=== PATIENT | male | born 1975 | race African-American/Black ===

== ENCOUNTER 2022-01-03 20:59 | Inpatient (IN) | payer SELFPAY ==
[2022-01-03 21:50] LABS: #Basophils 0.1 10x3/uL (0.0-0.2); #Eosinphils 0.5 10x3/uL (0.0-0.5); #Monocytes 1.1 10x3/uL (0.0-1.1); %Basophils 0.4 % (0.0-2.0); %Eosinophils 3.2 % (0.0-6.0); %Lymphocytes 24.3 % (18.0-47.0); %Monocytes 7.9 % (0.0-10.0); %Neutrophils 63.8 % (40.0-75.0); Hemoglobin 13.4 g/dL (13.5-17.5); Mean Corpuscular HGB CONC 35.1 g/dL (32.0-36.0); Mean Corpuscular Hemoglobin 29.5 pg (27.0-33.0); Mean Corpuscular Volume 84.1 fl (81.2-95.1); Mean Platelet Volume 11.7 fl (7.4-10.4); Platelet Count 270 10x3/uL (150-450); RBC Distribution Width 13.7 % (11.5-14.5); Red Blood Cell (RBC) Count 4.54 10x6/uL (4.32-5.72); White Blood Cell (WBC) Count 14.1 10x3/uL (3.5-10.5)
[2022-01-03 22:00] LABS: ALT (SGPT) 15 U/L (8-55); AST (SGOT) 16 U/L (5-34); Albumin 3.6 g/dL (3.5-5.0); Alkaline Phosphatase 203 U/L (40-110); Anion Gap 16 mmol/L (10-20); BUN (Urea Nitrogen) 22 mg/dL (8.9-20.6); Bilirubin, Total 0.3 mg/dL (0.2-1.2); Calc. Creatinine Clearance 0 mL/min (70-130); Calcium 9.9 mg/dL (7.8-10.44); Carbon Dioxide 28 mmol/L (22-29); Chloride 94 mmol/L (98-107); Estimated GFR 72; Glucose 458 mg/dL (70-105); Potassium 4.6 mmol/L (3.5-5.1); Protein, Total 7.6 g/dL (6.0-8.3); Sodium 133 mmol/L (136-145)
[2022-01-03] MEDS ORDERED: Cefepime 2 GM VIAL ONE (22:41)
[2022-01-03] MEDS ORDERED: Insulin Regular 300 UNITS/3 ML VIAL ONE (23:06)
[2022-01-03 23:37] LABS: Bilirubin Neg (Negative); Blood, Urine 10 (Negative); Glucose, Urine (Dipstick) >=1000 mg/dL (Negative); Ketone, Urine Negative (Negative); Leukocyte Negative (Negative); Nitrite Negative (Negative); Protein, Urine (Dipstick) Negative (Neg-Trace); Urobilinogen Normal mg/dL (Less than 2)
[2022-01-03 23:38] LABS: Bacteria/HPF None Seen HPF (None Seen); Clarity Clear (Clear); RBC/HPF 0-3 HPF (0-3); Squamous Epithelial None Seen HPF (0-3); WBC/HPF 0-3 HPF (0-3)
[2022-01-03] MEDS ORDERED: Acetaminophen 325 MG TAB PO PRN (23:50)
[2022-01-03] MEDS ORDERED: Dextrose 50% Abboject 50 ML SYRINGE SLOW IVP PRN (23:51)
[2022-01-03] MEDS ORDERED: Dextrose 5% in Water 1,000 ML IV PRN (23:51)
[2022-01-04 00:13] VITALS: BMI 26.7
[2022-01-04] MEDS ORDERED: Aspirin Chewable 81 MG TAB PO SCH (00:30)
[2022-01-04] MEDS ORDERED: Sodium Chloride 0.9% 1,000 ML IV SCH (00:30)
[2022-01-04] MEDS: HumaLOG 300 UNITS/3 ML VIAL SC PRN ×4 (02:21→17:27)
[2022-01-04 04:28] LABS: #Eosinphils 0.5 10x3/uL (0.0-0.5); #Monocytes 1.2 10x3/uL (0.0-1.1); #Neutrophils 10.7 10x3/uL (1.5-8.4); %Basophils 0.2 % (0.0-2.0); %Eosinophils 3.1 % (0.0-6.0); %Lymphocytes 20.1 % (18.0-47.0); %Monocytes 7.9 % (0.0-10.0); %Neutrophils 68.3 % (40.0-75.0); Hemoglobin 12.8 g/dL (13.5-17.5); Mean Corpuscular HGB CONC 35.4 g/dL (32.0-36.0); Mean Corpuscular Hemoglobin 29.8 pg (27.0-33.0); Mean Corpuscular Volume 84.4 fl (81.2-95.1); Mean Platelet Volume 11.9 fl (7.4-10.4); Platelet Count 245 10x3/uL (150-450); RBC Distribution Width 13.7 % (11.5-14.5); Red Blood Cell (RBC) Count 4.29 10x6/uL (4.32-5.72); White Blood Cell (WBC) Count 15.6 10x3/uL (3.5-10.5)
[2022-01-04 04:50] LABS: Anion Gap 14 mmol/L (10-20); BUN (Urea Nitrogen) 20 mg/dL (8.9-20.6); Calc. Creatinine Clearance 100 mL/min (70-130); Calcium 9.3 mg/dL (7.8-10.44); Carbon Dioxide 27 mmol/L (22-29); Chloride 100 mmol/L (98-107); Estimated GFR 87; Glucose 364 mg/dL (70-105); Magnesium 1.5 mg/dL (1.6-2.6); Potassium 3.9 mmol/L (3.5-5.1); Sodium 137 mmol/L (136-145)
[2022-01-04] MEDS ORDERED: Magnesium 2 GM/50 ML(in water) 2 GM in Premix Bag 1 BAG IVPB SCH (06:15)
[2022-01-04] MEDS ORDERED: HumuLIN 70/30 (300 UNITS/3 ML VIAL) SC SCH (08:00)
[2022-01-04] MEDS: Aspirin 81 mg Enteric Coated Tablet PO SCH (09:02)
[2022-01-04] MEDS: Enoxaparin Sodium 40 MG/0.4 ML SYRINGE SC SCH (09:03)
[2022-01-04] MEDS: Lisinopril 10 MG TAB PO SCH (09:03)
[2022-01-04] MEDS: Nicotine 21 MG PATCH TD SCH (09:08)
[2022-01-04] MEDS ORDERED: Electrolyte Replacement Protocol 1 EACH FS SCH (10:15)
[2022-01-04] MEDS: Cefepime 2 GM in Sodium Chloride 0.9% 100 ML IVPB SCH (10:33)
[2022-01-04] MEDS ORDERED: VANCOMYCIN 1.25 GM/250 ML BAG IVPB SCH (11:00)
[2022-01-04] MEDS: Vancomycin HCl 1 GM in Sodium Chloride 0.9% 250 ML 250 ML IVPB SCH (11:50)
[2022-01-04] MEDS ORDERED: Gadobenate Dimeglumine 529 MG/1 ML (20ML VIAL) ONE (14:37)
[2022-01-04] MEDS: HumuLIN 70/30 (300 UNITS/3 ML VIAL) SC SCH (17:26)
[2022-01-05] MEDS: Cefepime 2 GM in Sodium Chloride 0.9% 100 ML IVPB SCH ×3 (00:32→22:41)
[2022-01-05] MEDS: Vancomycin HCl 1 GM in Sodium Chloride 0.9% 250 ML 250 ML IVPB SCH (00:33)
[2022-01-05] MEDS ORDERED: Ondansetron PF 4 MG/2 ML Vial IVP PRN (03:17)
[2022-01-05 04:44] LABS: #Eosinphils 0.5 10x3/uL (0.0-0.5); #Neutrophils 12.8 10x3/uL (1.5-8.4); %Basophils 0.2 % (0.0-2.0); %Eosinophils 2.9 % (0.0-6.0); %Lymphocytes 13.5 % (18.0-47.0); %Monocytes 5.9 % (0.0-10.0); %Neutrophils 77.1 % (40.0-75.0); Hemoglobin 12.5 g/dL (13.5-17.5); Mean Corpuscular HGB CONC 35.1 g/dL (32.0-36.0); Mean Corpuscular Hemoglobin 29.5 pg (27.0-33.0); Mean Platelet Volume 11.2 fl (7.4-10.4); Platelet Count 230 10x3/uL (150-450); RBC Distribution Width 13.6 % (11.5-14.5); Red Blood Cell (RBC) Count 4.24 10x6/uL (4.32-5.72); White Blood Cell (WBC) Count 16.6 10x3/uL (3.5-10.5)
[2022-01-05 05:00] LABS: Anion Gap 14 mmol/L (10-20); BUN (Urea Nitrogen) 14 mg/dL (8.9-20.6); Calc. Creatinine Clearance 121 mL/min (70-130); Calcium 8.7 mg/dL (7.8-10.44); Carbon Dioxide 26 mmol/L (22-29); Chloride 104 mmol/L (98-107); Estimated GFR 107; Glucose 194 mg/dL (70-105); Magnesium 1.5 mg/dL (1.6-2.6); Potassium 3.8 mmol/L (3.5-5.1); Sodium 140 mmol/L (136-145)
[2022-01-05] MEDS ORDERED: Magnesium 2 GM/50 ML(in water) 2 GM in Premix Bag 1 BAG IVPB SCH (05:30)
[2022-01-05] MEDS ORDERED: HYDROcodone/Acetaminophen 5/325 mg Tablet PO PRN ×2 (07:20)
[2022-01-05] MEDS ORDERED: Benzonatate 100 MG CAP PO PRN (07:20)
[2022-01-05] MEDS ORDERED: hydrALAZINE 20 MG/ML VIAL SLOW IVP PRN (07:20)
[2022-01-05] MEDS ORDERED: Labetalol HCl 100 MG/20 ML VIAL SLOW IVP PRN (07:20)
[2022-01-05] MEDS ORDERED: Moisturizing Cream (Eucerin) 113 GM JAR TOP PRN (07:20)
[2022-01-05] MEDS ORDERED: Bisacodyl 5 MG TAB PO PRN (07:20)
[2022-01-05] MEDS ORDERED: Artificial Tear Sol 15 ML BOT EA EYE PRN (07:20)
[2022-01-05] MEDS ORDERED: Acetaminophen 500 MG TAB PO PRN (07:20)
[2022-01-05] MEDS ORDERED: Senokot S 8.6-50 MG TAB PO PRN (07:20)
[2022-01-05] MEDS ORDERED: diphenhydrAMINE 25 MG CAP PO PRN (07:20)
[2022-01-05] MEDS ORDERED: Cepastat Lozenges 1 LOZ PO PRN (07:20)
[2022-01-05] MEDS ORDERED: Calcium Carbonate 500 MG ChewTAB PO PRN (07:20)
[2022-01-05] MEDS ORDERED: Sodium Chloride 0.65% Nasal 44 ML BOT EA NARE PRN (07:20)
[2022-01-05] MEDS ORDERED: Lactated Ringer's 1,000 ML IV SCH ×2 (08:00)
[2022-01-05] MEDS: Lisinopril 10 MG TAB PO SCH (10:18)
[2022-01-05] MEDS: Aspirin 81 mg Enteric Coated Tablet PO SCH (10:18)
[2022-01-05] MEDS: Nicotine 21 MG PATCH TD SCH ×2 (10:22→10:29)
[2022-01-05 11:35] LABS: Vancomycin, Trough 6.8 ug/mL
[2022-01-05 12:35] LABS: Hemoglobin A1c 12.3 % (4.0-6.0)
[2022-01-05] MEDS ORDERED: metroNIDAZOLE 500 MG in Premix Bag 1 BAG IVPB SCH (14:00)
[2022-01-05] MEDS ORDERED: Lidocaine 2% PF 5 ML VIAL ONE (14:16)
[2022-01-05] MEDS ORDERED: Ondansetron PF 4 MG/2 ML Vial ONE (14:16)
[2022-01-05] MEDS ORDERED: Dexamethasone 4 mg/ml Vial ONE (14:16)
[2022-01-05] MEDS ORDERED: PROPOFOL 20 ML ONE (14:16)
[2022-01-05] MEDS ORDERED: Fentanyl 100 MCG/2 ML VIAL ONE (14:16)
[2022-01-05] MEDS: HumuLIN 70/30 (300 UNITS/3 ML VIAL) SC SCH ×2 (14:21→16:15)
[2022-01-05] MEDS: Enoxaparin Sodium 40 MG/0.4 ML SYRINGE SC SCH (14:22)
[2022-01-05] MEDS ORDERED: HumuLIN 70/30 (300 UNITS/3 ML VIAL) SC SCH (14:30)
[2022-01-05] MEDS ORDERED: Ibuprofen 600 MG TAB PO PRN (14:33)
[2022-01-05] MEDS ORDERED: PHENYLEPHRINE-NS 100 MCG/ML 10 ML SYRINGE ONE (14:49)
[2022-01-05] MEDS ORDERED: Ketorolac Tromethamine 30 MG/ML VIAL ONE (14:49)
[2022-01-05] MEDS ORDERED: HYDROmorphone 0.5 MG/0.5 ML SYRINGE ONE ×2 (14:54)
[2022-01-05] MEDS: VANCOMYCIN 1.25 GM/250 ML BAG 1.25 GM in Premix Bag 1 BAG IVPB SCH (16:05)
[2022-01-05] MEDS ORDERED: HumaLOG 300 UNITS/3 ML VIAL ONE (22:56)
[2022-01-05] MEDS: HumaLOG 300 UNITS/3 ML VIAL SC PRN (23:15)
[2022-01-06] MEDS: VANCOMYCIN 1.25 GM/250 ML BAG 1.25 GM in Premix Bag 1 BAG IVPB SCH ×2 (00:47→13:59)
[2022-01-06] MEDS: metroNIDAZOLE 500 MG in Premix Bag 1 BAG IVPB SCH ×3 (02:28→18:32)
[2022-01-06 05:29] LABS: #Basophils 0.1 10x3/uL (0.0-0.2); #Eosinphils 0.5 10x3/uL (0.0-0.5); #Monocytes 0.9 10x3/uL (0.0-1.1); #Neutrophils 6.8 10x3/uL (1.5-8.4); %Basophils 0.5 % (0.0-2.0); %Eosinophils 4.6 % (0.0-6.0); %Lymphocytes 23.1 % (18.0-47.0); %Monocytes 8.5 % (0.0-10.0); Hemoglobin 11.8 g/dL (13.5-17.5); Mean Corpuscular HGB CONC 34.4 g/dL (32.0-36.0); Mean Corpuscular Hemoglobin 29.5 pg (27.0-33.0); Mean Corpuscular Volume 85.8 fl (81.2-95.1); Mean Platelet Volume 11.7 fl (7.4-10.4); Platelet Count 224 10x3/uL (150-450); RBC Distribution Width 13.9 % (11.5-14.5); White Blood Cell (WBC) Count 10.8 10x3/uL (3.5-10.5)
[2022-01-06 05:54] LABS: Magnesium 1.6 mg/dL (1.6-2.6)
[2022-01-06] MEDS ORDERED: Magnesium 2 GM/50 ML(in water) 2 GM in Premix Bag 1 BAG IVPB SCH (06:15)
[2022-01-06] MEDS: HumaLOG 300 UNITS/3 ML VIAL SC PRN ×2 (06:45→13:02)
[2022-01-06] MEDS: Aspirin 81 mg Enteric Coated Tablet PO SCH (09:31)
[2022-01-06] MEDS: Enoxaparin Sodium 40 MG/0.4 ML SYRINGE SC SCH (09:31)
[2022-01-06] MEDS: Lisinopril 10 MG TAB PO SCH (09:32)
[2022-01-06] MEDS: Nicotine 21 MG PATCH TD SCH (09:32)
[2022-01-06] MEDS: Polyethylene Glycol 3350 17 GM Packet PO SCH (09:32)
[2022-01-06] MEDS: HumuLIN 70/30 (300 UNITS/3 ML VIAL) SC SCH ×4 (09:45→18:28)
[2022-01-06] MEDS: Cefepime 2 GM in Sodium Chloride 0.9% 100 ML IVPB SCH ×2 (13:06→23:05)
[2022-01-06] MEDS: traMADol HCl 50 MG TAB PO PRN (18:27)
[2022-01-06] MEDS: Atorvastatin Calcium 40 MG TAB PO SCH (22:03)
[2022-01-06 23:31] LABS: Vancomycin, Trough 13.1 ug/mL
[2022-01-07] MEDS: VANCOMYCIN 1.25 GM/250 ML BAG 1.25 GM in Premix Bag 1 BAG IVPB SCH (00:55)
[2022-01-07] MEDS: metroNIDAZOLE 500 MG in Premix Bag 1 BAG IVPB SCH ×3 (03:54→18:02)
[2022-01-07 04:52] LABS: Magnesium 1.5 mg/dL (1.6-2.6)
[2022-01-07 04:55] LABS: #Eosinphils 0.7 10x3/uL (0.0-0.5); #Monocytes 1.1 10x3/uL (0.0-1.1); #Neutrophils 8.3 10x3/uL (1.5-8.4); %Basophils 0.3 % (0.0-2.0); %Eosinophils 5.4 % (0.0-6.0); %Lymphocytes 25.2 % (18.0-47.0); %Monocytes 7.8 % (0.0-10.0); %Neutrophils 60.9 % (40.0-75.0); Mean Corpuscular HGB CONC 34.3 g/dL (32.0-36.0); Mean Corpuscular Hemoglobin 28.8 pg (27.0-33.0); Mean Corpuscular Volume 84.1 fl (81.2-95.1); Mean Platelet Volume 11.1 fl (7.4-10.4); Platelet Count 265 10x3/uL (150-450); RBC Distribution Width 13.7 % (11.5-14.5); Red Blood Cell (RBC) Count 4.16 10x6/uL (4.32-5.72); White Blood Cell (WBC) Count 13.6 10x3/uL (3.5-10.5)
[2022-01-07] MEDS ORDERED: Magnesium 2 GM/50 ML(in water) 2 GM in Premix Bag 1 BAG IVPB SCH (05:00)
[2022-01-07] MEDS: traMADol HCl 50 MG TAB PO PRN (05:54)
[2022-01-07] MEDS: HumaLOG 300 UNITS/3 ML VIAL SC PRN ×2 (06:31→11:29)
[2022-01-07] MEDS: HumuLIN 70/30 (300 UNITS/3 ML VIAL) SC SCH ×3 (09:00→16:32)
[2022-01-07] MEDS: Lisinopril 10 MG TAB PO SCH (09:01)
[2022-01-07] MEDS: Aspirin 81 mg Enteric Coated Tablet PO SCH (09:01)
[2022-01-07] MEDS: Nicotine 21 MG PATCH TD SCH (09:02)
[2022-01-07] MEDS: Polyethylene Glycol 3350 17 GM Packet PO SCH (09:02)
[2022-01-07] MEDS: Enoxaparin Sodium 40 MG/0.4 ML SYRINGE SC SCH (09:02)
[2022-01-07] MEDS: Cefepime 2 GM in Sodium Chloride 0.9% 100 ML IVPB SCH ×2 (13:29→23:51)
[2022-01-07] MEDS: Vancomycin HCl 1.25 GM in Sodium Chloride 0.9% 250 ML 250 ML IVPB SCH (14:28)
[2022-01-07] MEDS: Atorvastatin Calcium 40 MG TAB PO SCH (20:48)
[2022-01-08] MEDS: Vancomycin HCl 1.25 GM in Sodium Chloride 0.9% 250 ML 250 ML IVPB SCH ×2 (00:26→11:38)
[2022-01-08] MEDS: metroNIDAZOLE 500 MG in Premix Bag 1 BAG IVPB SCH ×2 (02:40→08:31)
[2022-01-08] MEDS: HumaLOG 300 UNITS/3 ML VIAL SC PRN ×2 (06:29→11:38)
[2022-01-08] MEDS: Enoxaparin Sodium 40 MG/0.4 ML SYRINGE SC SCH (08:31)
[2022-01-08] MEDS: Lisinopril 10 MG TAB PO SCH (08:31)
[2022-01-08] MEDS: Aspirin 81 mg Enteric Coated Tablet PO SCH (08:31)
[2022-01-08] MEDS: HumuLIN 70/30 (300 UNITS/3 ML VIAL) SC SCH ×2 (08:32→11:39)
[2022-01-08] MEDS: Nicotine 21 MG PATCH TD SCH (08:32)
[2022-01-08] MEDS: Polyethylene Glycol 3350 17 GM Packet PO SCH (08:32)
[2022-01-08] MEDS: Cefepime 2 GM in Sodium Chloride 0.9% 100 ML IVPB SCH ×2 (11:37→11:38)
[2022-01-08 17:05] VITALS: BP 171/72; TEMP 97.4
[2022-01-08] MEDS ORDERED: Vancomycin HCl 1.25 GM in Sodium Chloride 0.9% 250 ML 250 ML IVPB SCH (20:00)
== END 2022-01-08 17:16 | disposition home or self-care (01) | DRG 854 ==
LOC: CSHERS 20:59 → CSHTELE 01-04 00:11
PROVIDERS: ADMIT Family Medicine; ATTEND Family Medicine
PROC: 3E03329 Introduction of Other Anti-infective into Peripheral Vein, Percutaneous Approach (ICD-10-PCS; 2022-01-04)
PROC: 0Y6S0Z0 Detachment at Left 2nd Toe, Complete, Open Approach (ICD-10-PCS; principal; 2022-01-05)
DX: A41.89 Other specified sepsis (principal); M86.8X7 Other osteomyelitis, ankle and foot; I10 Essential (primary) hypertension; E78.5 Hyperlipidemia, unspecified; F31.9 Bipolar disorder, unspecified; F17.210 Nicotine dependence, cigarettes, uncomplicated; E10.65 Type 1 diabetes mellitus with hyperglycemia; E78.00 Pure hypercholesterolemia, unspecified; E10.628 Type 1 diabetes mellitus with other skin complications; Z20.822 Contact with and (suspected) exposure to COVID-19; E10.51 Type 1 diabetes mellitus with diabetic peripheral angiopathy without gangrene; Z88.0 Allergy status to penicillin; Z79.4 Long term (current) use of insulin
CPT/HCPCS: 36415; 36416; 80048; 80053; 80202; 81003; 81015; 83036; 83605; 83735; 85025; 85652; 87040; 87070; 87076; 87077; 87186; 87205; 96365; 96367; 96375; 97139; A9577; J0692; J1100; J1170; J1650; J1815; J1885; J2001; J2405; J2704; J3010; J3370; J3475; J3490; J7050; J7120; U0003; U0005

== ENCOUNTER 2022-01-11 08:15 | Outpatient (CLI) | payer SELFPAY | END 2022-01-11 08:16 | disposition home or self-care (01) | LOC: CSHWCC 08:15 | PROVIDERS: ATTEND Nurse Practitioner Family | DX: T81.89XD Other complications of procedures, not elsewhere classified, subsequent encounter (principal) ==

== ENCOUNTER 2022-01-14 10:17 | Outpatient (CLI) | payer SELFPAY | END 2022-01-14 10:18 | disposition home or self-care (01) | LOC: CSHWCC 10:17 | PROVIDERS: ATTEND Nurse Practitioner Family | DX: T87.89 Other complications of amputation stump (principal); Z89.422 Acquired absence of other left toe(s) ==

== ENCOUNTER 2022-01-19 13:13 | Outpatient (CLI) | payer SELFPAY | END 2022-01-19 13:14 | disposition home or self-care (01) | LOC: CSHWCC 13:13 | PROVIDERS: ATTEND Nurse Practitioner Family | DX: T87.89 Other complications of amputation stump (principal); Z89.422 Acquired absence of other left toe(s) ==

== ENCOUNTER 2022-01-22 08:03 | Outpatient (CLI) | payer SELFPAY | END 2022-01-22 08:04 | disposition home or self-care (01) | LOC: CSHWCC 08:03 | PROVIDERS: ATTEND Nurse Practitioner Family | DX: T87.89 Other complications of amputation stump (principal); Z89.422 Acquired absence of other left toe(s) | CPT/HCPCS: 99212; G0463 ==

== ENCOUNTER 2022-01-26 10:43 | Outpatient (CLI) | payer SELFPAY | END 2022-01-26 10:44 | disposition home or self-care (01) | LOC: CSHWCC 10:43 | PROVIDERS: ATTEND Nurse Practitioner Family | DX: T87.89 Other complications of amputation stump (principal); Z89.422 Acquired absence of other left toe(s) | CPT/HCPCS: 11042 ==

== ENCOUNTER 2022-02-09 08:51 | Outpatient (CLI) | payer SELFPAY | END 2022-02-09 08:52 | disposition home or self-care (01) | LOC: CSHWCC 08:51 | PROVIDERS: ATTEND Nurse Practitioner Family | DX: T87.89 Other complications of amputation stump (principal); Z89.422 Acquired absence of other left toe(s) | CPT/HCPCS: 99212; G0463 ==

== ENCOUNTER 2022-02-23 08:32 | Outpatient (CLI) | payer BC | END 2022-02-23 08:33 | disposition home or self-care (01) | LOC: CSHWCC 08:32 | PROVIDERS: ATTEND Nurse Practitioner Family | DX: T81.89XD Other complications of procedures, not elsewhere classified, subsequent encounter (principal) | CPT/HCPCS: 97597; 99212; G0463 ==

== ENCOUNTER 2022-03-09 08:36 | Outpatient (CLI) | payer BC | END 2022-03-09 08:37 | disposition home or self-care (01) | LOC: CSHWCC 08:36 | PROVIDERS: ATTEND Preventive Medicine Undersea and Hyperbaric Medicine | DX: T87.89 Other complications of amputation stump (principal); Z89.422 Acquired absence of other left toe(s) | CPT/HCPCS: 99213; G0463 ==

== ENCOUNTER 2022-03-23 08:50 | Outpatient (CLI) | payer BC | END 2022-03-23 08:51 | disposition home or self-care (01) | LOC: CSHWCC 08:50 | PROVIDERS: ATTEND Preventive Medicine Undersea and Hyperbaric Medicine | DX: T87.89 Other complications of amputation stump (principal); Z89.422 Acquired absence of other left toe(s) | CPT/HCPCS: 99212; G0463 ==

== ENCOUNTER 2023-08-31 12:32 | Emergency (ER) | payer OTHER ==
[2023-08-31] MEDS ORDERED: Cefepime 2 GM VIAL ONE (13:54)
[2023-08-31] MEDS ORDERED: VANCOMYCIN 2 GRAM/400 ML BAG 2 GM in Premix 1 BAG IVPB SCH (14:00)
[2023-08-31 14:07] LABS: #Basophils 0.1 10x3/uL (0.0-0.2); #Eosinphils 0.5 10x3/uL (0.0-0.5); #Monocytes 0.7 10x3/uL (0.0-1.1); #Neutrophils 7.8 10x3/uL (1.5-8.4); %Basophils 0.4 % (0.0-2.0); %Eosinophils 3.8 % (0.0-6.0); %Lymphocytes 26.9 % (18.0-47.0); %Monocytes 5.3 % (0.0-10.0); %Neutrophils 63.3 % (40.0-75.0); Hematocrit 38.9 % (38.8-50.0); Hemoglobin 13.4 g/dL (13.5-17.5); Mean Corpuscular HGB CONC 34.4 g/dL (32.0-36.0); Mean Corpuscular Volume 84.2 fl (81.2-95.1); Mean Platelet Volume 11.7 fl (7.4-10.4); Platelet Count 229 10x3/uL (150-450); RBC Distribution Width 14.7 % (11.5-14.5); Red Blood Cell (RBC) Count 4.62 10x6/uL (4.32-5.72); White Blood Cell (WBC) Count 12.3 10x3/uL (3.5-10.5)
[2023-08-31 14:27] LABS: ALT (SGPT) 29 U/L (8-55); AST (SGOT) 37 U/L (5-34); Albumin 3.8 g/dL (3.5-5.0); Alkaline Phosphatase 261 U/L (40-110); Anion Gap 11 mmol/L (10-20); BUN (Urea Nitrogen) 15 mg/dL (8.9-20.6); Bilirubin, Total 0.3 mg/dL (0.2-1.2); Calc. Creatinine Clearance 0 mL/min (70-130); Calcium 9.1 mg/dL (7.8-10.44); Carbon Dioxide 27 mmol/L (22-29); Chloride 103 mmol/L (98-107); Estimated GFR 65; Globulin 3.6 g/dL (2.4-3.5); Potassium 4.2 mmol/L (3.5-5.1); Protein, Total 7.4 g/dL (6.0-8.3); Sodium 137 mmol/L (136-145)
[2023-08-31 14:29] LABS: Glucose 444 mg/dL (70-105)
== END 2023-08-31 15:46 | disposition home or self-care (01) ==
LOC: CSHERS 12:32
DX: L03.032 Cellulitis of left toe (principal); I10 Essential (primary) hypertension; E11.9 Type 2 diabetes mellitus without complications; F17.210 Nicotine dependence, cigarettes, uncomplicated; Z79.4 Long term (current) use of insulin
CPT/HCPCS: 36415; 80053; 83605; 85025; 86140; 87040; J0692; J3370